=== PATIENT | male | born 1985 | race Caucasian/White ===

== ENCOUNTER 2018-07-27 18:24 | Emergency (ER) | payer OTHER ==
[2018-07-27] MEDS ORDERED: Adacel (T-DAP) 0.5 ML SYRINGE ONE (19:35)
== END 2018-07-27 20:04 | disposition home or self-care (01) ==
LOC: ERS 18:24
DX: T63.301A Toxic effect of unspecified spider venom, accidental (unintentional), initial encounter (principal); I10 Essential (primary) hypertension; E21.3 Hyperparathyroidism, unspecified; F41.9 Anxiety disorder, unspecified; F32.9 Major depressive disorder, single episode, unspecified; F17.290 Nicotine dependence, other tobacco product, uncomplicated; Z71.6 Tobacco abuse counseling
CPT/HCPCS: 90471; 90715; 99406